=== PATIENT | male | born 1945 | race Caucasian/White ===

== ENCOUNTER 2018-01-03 12:58 | Emergency (ER) | payer MEDICARE ==
[2018-01-03] MEDS ORDERED: NORMAL SALINE 1000 ML 1,000 ML IV ONE (14:14)
[2018-01-03] MEDS ORDERED: MECLIZINE HCL 25 MG TABLET PO ONE (14:15)
[2018-01-03 14:55] LABS: ABSOLUTE BASOPHILS # (AUTO) 0.1 10^3/uL (0.0-0.2); ABSOLUTE EOSINOPHILS # (AUTO) 0.1 10^3/uL (0.0-0.6); ABSOLUTE LYMPHOCYTES (AUTO) 0.5 10^3/uL (0.5-4.7); ABSOLUTE MONOCYTES (AUTO) 0.4 10^3/uL (0.1-1.4); ABSOLUTE NEUT (AUTO) 8.5 10^3/uL (1.7-8.2); BASOPHILS % (AUTO) 0.6 % (0-2); EOSINOPHILS % (AUTO) 0.8 % (0-6); HEMATOCRIT 39.7 % (37.9-51.0); HEMOGLOBIN 13.7 g/dL (13.5-17.0); LYMPHOCYTES % (AUTO) 5.2 % (13-45); MEAN CORPUSCULAR HEMOGLOBIN 31.6 pg (27.0-33.4); MEAN CORPUSCULAR HGB CONC 34.3 g/dL (32.0-36.0); MEAN CORPUSCULAR VOLUME 92 fl (80-97); MONOCYTES % (AUTO) 4.5 % (3-13); PLATELET COUNT 224 10^3/uL (150-450); RED BLOOD COUNT 4.32 10^6/uL (4.35-5.55); RED CELL DISTRIBUTION WIDTH 13.5 % (11.5-14.0); SEGMENTED NEUTROPHILS % (AUTO) 88.9 % (42-78); TOTAL CELLS COUNTED % (AUTO) 100 %; WHITE BLOOD COUNT 9.6 10^3/uL (4.0-10.5)
--- NOTE | 2018-01-03 15:10 | RADIOLOGY REPORT (SQ) ---
EXAM DESCRIPTION: CHEST 2 VIEWS COMPLETED DATE/TIME: 01/03/2018 2:51 pm REASON FOR STUDY: dizziness COMPARISON: None. EXAM PARAMETERS: NUMBER OF VIEWS: two views TECHNIQUE: Digital Frontal and Lateral radiographic views of the chest acquired. RADIATION DOSE: NA LIMITATIONS: none FINDINGS: LUNGS AND PLEURA: No opacities, masses or pneumothorax. No pleural effusion. MEDIASTINUM AND HILAR STRUCTURES: No masses or contour abnormalities. HEART AND VASCULAR STRUCTURES: Heart normal size. No evidence for failure. BONES: No acute findings. HARDWARE: None in the chest. OTHER: No other significant finding. IMPRESSION: NO ACUTE RADIOGRAPHIC FINDING IN THE CHEST. TECHNICAL DOCUMENTATION: JOB ID: [id number] [employer]- All Rights Reserved Reading location - IP/workstation name: [email or web address]
[2018-01-03 15:17] LABS: ANION GAP 13 (5-19); BLOOD UREA NITROGEN 32 mg/dL (7-20); CALCIUM 9.9 mg/dL (8.4-10.2); CARBON DIOXIDE 26 mmol/L (22-30); CHLORIDE 105 mmol/L (98-107); GLUCOSE 115 mg/dL (75-110); POTASSIUM 4.5 mmol/L (3.6-5.0); SODIUM 143.9 mmol/L (137-145)
[2018-01-03 16:14] VITALS: BP 138/51
--- NOTE | 2018-01-03 16:28 | ER Document Report ---
ED General - General Chief Complaint: Shortness Of Breath Stated Complaint: DIZZINESS Time Seen by Provider: 01/03/18 14:09 TRAVEL OUTSIDE OF THE [place] IN LAST 30 DAYS: No - HPI Patient complains to provider of: Weakness dizziness Notes: Patient coming in for evaluation of weakness and dizziness. Patient states he was out mowing grass earlier today when symptoms started therefore came into the house continue to have symptoms therefore had his called EMS. Patient states he was feeling a little weak earlier this morning to have some diarrhea one bout. Patient states now in triage sitting up feeling much better when she is cooled off. Patient denies any head pain chest pain dull pain during the weakness episode. Patient denies any recent travel denies any shortness of breath at this time - Related Data Allergies/Adverse Reactions: No Known Allergies Allergy (Verified 01/03/18 13:00) Past Medical History - Social History Smoking Status: Never Smoker Chew tobacco use (# tins/day): No Frequency of alcohol use: None Drug Abuse: None Family History: Reviewed & Not Pertinent Patient has suicidal ideation: No Patient has homicidal ideation: No - Past Medical History Cardiac Medical History: Reports: Hx Hypercholesterolemia, Hx Hypertension Endocrine Medical History: Reports: Hx Diabetes Mellitus Type 2 - prediabetic Renal/ Medical History: Reports: Hx Kidney Stones. Denies: Hx Peritoneal Dialysis Past Surgical History: Reports: Hx Cardiac CatheterizationComment Only: Hx Cardiac Surgery - stent placed Aug 25, 2011 - Immunizations Hx Diphtheria, Pertussis, Tetanus Vaccination: Yes Hx Pneumococcal Vaccination: 06/23/11 Review of Systems - Review of Systems Constitutional: Weakness - Dizziness EENT: No symptoms reported Cardiovascular: No symptoms reported Respiratory: No symptoms reported Gastrointestinal: No symptoms reported Genitourinary: No symptoms reported Male Genitourinary: No symptoms reported Musculoskeletal: No symptoms reported Skin: No symptoms reported Hematologic/Lymphatic: No symptoms reported Neurological/Psychological: No symptoms reported Physical Exam - Vital signs Vitals: Temp Pulse Resp BP Pulse Ox 98.1 F 83 20 127/49 H 99 01/03/18 13:24 01/03/18 13:24 01/03/18 13:24 01/03/18 13:24 01/03/18 13:24 Interpretation: Normal - General General appearance: Appears well, Alert - HEENT Head: Normocephalic, Atraumatic Eyes: Normal Pupils: PERRL - Respiratory Respiratory status: No respiratory distress Chest status: Nontender Breath sounds: Normal Chest palpation: Normal - Cardiovascular Rhythm: Regular Heart sounds: Normal auscultation Murmur: No - Abdominal Inspection: Normal Distension: No distension Bowel sounds: Normal Tenderness: Nontender Organomegaly: No organomegaly - Back Back: Normal, Nontender - Extremities General upper extremity: Normal inspection, Nontender, Normal color, Normal ROM , Normal temperature General lower extremity: Normal inspection, Nontender, Normal color, Normal ROM , Normal temperature, Normal weight bearing. No: Rosetta's sign - Neurological Neuro grossly intact: Yes Cognition: Normal Orientation: AAOx4 Janet Coma Scale Eye Opening: Spontaneous [place] Coma Scale Verbal: Oriented Janet Coma Scale Motor: Obeys Commands [place] Coma Scale Total: 15 Speech: Normal Motor strength normal: LUE, RUE, LLE, RLE Sensory: Normal - Psychological Associated symptoms: Normal affect, Normal mood - Skin Skin Temperature: Warm Skin Moisture: Dry Skin Color: Normal Course - Re-evaluation Re-evalutation: 01/03/18 20:54 Orthostatics otherwise negative. Patient was given IV fluids here in ER laboratory studies not show any acute pathology. Increase in the patient's creatinine however lower than last laboratory studies performed here. Patient was ambulated around the ER without any difficulty no reproduction of symptoms. More likely symptoms due to heat exposure. Patient will be discharged home follow-up primary care physician. - Vital Signs Vital signs: Temp Pulse Resp BP Pulse Ox 98.1 F 78 16 138/51 H 100 01/03/18 13:24 01/03/18 16:13 01/03/18 16:13 01/03/18 16:13 01/03/18 16:13 - Laboratory Result Diagrams: 01/03/18 14:14 01/03/18 14:14 Laboratory results interpreted by me: 01/03/18 01/03/18 14:14 14:14 RBC 4.32 L Seg Neutrophils % 88.9 H Lymphocytes % 5.2 L Absolute Neutrophils 8.5 H BUN 32 H Creatinine 1.58 H Est GFR ( Amer) 53 L Est GFR (Non-Af Amer) 44 L Glucose 115 H Discharge - Discharge Clinical Impression: Dehydration Heat exposure Qualifiers: Encounter type: initial encounter Qualified Code(s): T67.9XXA - Effect of heat and light, unspecified, initial encounter Condition: Good Disposition: HOME, SELF-CARE Instructions: Dehydration ([facility]), Near Syncopal Episode ([facility]) Additional Instructions: Your laboratory studies not show any signs of significant pathology here today. Do believe your symptoms today were due to heat exposure and dehydration. Please make sure that she drink plenty of fluids water and fluids containing electrolytes such as Gatorade to make sure to stay well-hydrated. Would recommend rest for the next 48 hours. Follow-up with your doctor in 1 week. Return to ER symptoms worsen Referrals: YING AMAYA MD [Primary Care Provider] - Follow up as needed
--- NOTE | 2018-01-03 19:39 | EKG REPORT ---
SEVERITY:- BORDERLINE ECG - SINUS RHYTHM BORDERLINE T ABNORMALITIES, INFERIOR LEADS : Confirmed by: Amadeo Kong MD 03-Jan-2018 19:39:21
== END 2018-01-03 16:31 | disposition home or self-care (01) ==
LOC: ER 12:58
DX: T67.9XXA Effect of heat and light, unspecified, initial encounter (principal); E86.0 Dehydration; R06.02 Shortness of breath; R42 Dizziness and giddiness; R19.7 Diarrhea, unspecified; X58.XXXA Exposure to other specified factors, initial encounter; I10 Essential (primary) hypertension; E11.9 Type 2 diabetes mellitus without complications
CPT/HCPCS: 93005; 99284; 96360; 36415; 85025; 80048; 84484; 71046; 93010; A9270; J7030

== ENCOUNTER 2020-07-10 22:56 | Emergency (ER) | payer MEDICARE ==
[2020-07-10 23:58] LABS: ABSOLUTE BASOPHILS # (AUTO) 0.1 10^3/uL (0.0-0.2); ABSOLUTE EOSINOPHILS # (AUTO) 0.3 10^3/uL (0.0-0.6); ABSOLUTE LYMPHOCYTES (AUTO) 2.8 10^3/uL (0.5-4.7); ABSOLUTE MONOCYTES (AUTO) 0.8 10^3/uL (0.1-1.4); ABSOLUTE NEUT (AUTO) 3.8 10^3/uL (1.7-8.2); BASOPHILS % (AUTO) 0.9 % (0-2); EOSINOPHILS % (AUTO) 3.9 % (0-6); HEMATOCRIT 36.2 % (37.9-51.0); HEMOGLOBIN 12.5 g/dL (13.5-17.0); LYMPHOCYTES % (AUTO) 35.8 % (13-45); MEAN CORPUSCULAR HEMOGLOBIN 31.7 pg (27.0-33.4); MEAN CORPUSCULAR HGB CONC 34.5 g/dL (32.0-36.0); MEAN CORPUSCULAR VOLUME 92 fl (80-97); MONOCYTES % (AUTO) 10.4 % (3-13); PLATELET COUNT 252 10^3/uL (150-450); RED BLOOD COUNT 3.94 10^6/uL (4.35-5.55); RED CELL DISTRIBUTION WIDTH 13.8 % (11.5-14.0); TOTAL CELLS COUNTED % (AUTO) 100 %; WHITE BLOOD COUNT 7.9 10^3/uL (4.0-10.5)
--- NOTE | 2020-07-11 00:27 | RADIOLOGY REPORT (SQ) ---
EXAM DESCRIPTION: XR CHEST 1 VIEW COMPLETED DATE/TME: 07/10/2020 23:38 CLINICAL HISTORY: 74 years Male, CP COMPARISON:Jan 03 2018 NUMBER OF VIEWS/TECHNIQUE: 1/AP FINDINGS: Adequate lung volume, clear parenchyma, normal cardiac silhouette, and intact bony thorax.Atherosclerotic vascular disease. IMPRESSION: No acute cardiopulmonary findings.
[2020-07-11 01:57] LABS: ALBUMIN 4.1 g/dL (3.5-5.0); ALKALINE PHOSPHATASE 38 U/L (38-126); ANION GAP 10 (5-19); ASPARTATE AMINO TRANSFERASE 27 U/L (17-59); BILIRUBIN,DIRECT 0.2 mg/dL (0.0-0.4); BILIRUBIN,TOTAL 0.4 mg/dL (0.2-1.3); BLOOD UREA NITROGEN 37 mg/dL (7-20); CALCIUM 9.7 mg/dL (8.4-10.2); CARBON DIOXIDE 27 mmol/L (22-30); CHLORIDE 107 mmol/L (98-107); CREATINE KINASE 142 U/L (55-170); GLUCOSE 128 mg/dL (75-110); POTASSIUM 4.1 mmol/L (3.6-5.0); TOTAL PROTEIN 6.9 g/dL (6.3-8.2)
[2020-07-11 02:09] LABS: CREATINE KINASE MB 2.18 ng/mL (<4.55)
[2020-07-11 02:11] LABS: TROPONIN I < 0.012 ng/mL
[2020-07-11 06:51] LABS: APPEARANCE,URINE CLEAR; BILIRUBIN,URINE NEGATIVE (NEGATIVE); COLOR,URINE YELLOW; GLUCOSE, URINE NEGATIVE (NEGATIVE); KETONES,URINE NEGATIVE (NEGATIVE); LEUKOCYTE ESTERASE,URINE NEGATIVE (NEGATIVE); NITRITE,URINE NEGATIVE (NEGATIVE); PROTEIN,URINE >=500 mg/dL (NEGATIVE); URINE SPECIFIC GRAVITY 1.017; UROBILINOGEN,URINE NEGATIVE mg/dL (<2.0)
--- NOTE | 2020-07-11 06:57 | ER Document Report ---
ED General - General Chief Complaint: Chest Pain Stated Complaint: CHEST PAIN/BURNING Time Seen by Provider: 07/11/20 06:23 Primary Care Provider: YING AMAYA MD [Primary Care Provider] - Follow up as needed TRAVEL OUTSIDE OF THE [place] IN LAST 30 DAYS: No - HPI Notes: Chief complaint: Chest pain History of present illness: 74-year-old male with past history of CAD and previous stent placement greater than 5 years ago awakened from sleep overnight having some burning retrosternal discomfort without radiation which she says was somewhat similar to the pain he had had back prior to his stent procedure. There was no radiation of pain. There was no diaphoresis, nausea, vomiting or dyspnea associated. Patient took 1 nitroglycerin at home with partial relief of the discomfort. EMS was called and a second dose of nitroglycerin was given. His discomfort completely resolved and he was transported here. He is remained asymptomatic since arrival here. Patient is a type II diabetic well-controlled and has a history of hypertension and hyperlipidemia. His family history is negative for CAD. He has not smoked in over 20 years. He denies any known history of thromboembolic disease and has no identifiable risk factors for thromboembolic disease. 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 - Related Data Allergies/Adverse Reactions: No Known Allergies Allergy (Verified 01/03/18 13:00) Past Medical History - General Information source: Patient, Relative - Social History Smoking Status: Former Smoker Frequency of alcohol use: Rare Family History: Reviewed & Not Pertinent - Past Medical History Cardiac Medical History: Reports: Hx Coronary Artery Disease, Hx Hypercholesterolemia, Hx Hypertension Denies: Hx DVT, Hx Pulmonary Embolism Endocrine Medical History: Reports: Hx Diabetes Mellitus Type 2 - prediabetic Renal/ Medical History: Reports: Hx Kidney Stones. Denies: Hx Peritoneal Dialysis Past Surgical History: Reports: Hx Cardiac CatheterizationComment Only: Hx Cardiac Surgery - stent placed Aug 25, 2011 - Immunizations Hx Diphtheria, Pertussis, Tetanus Vaccination: Yes Hx Pneumococcal Vaccination: 06/23/11 Review of Systems - Review of Systems Notes: Constitutional: Negative for fever. HENT: Negative for sore throat. Eyes: Negative for visual changes. Cardiovascular: As per HPI. Respiratory: Negative for shortness of breath. Gastrointestinal: Negative for abdominal pain, vomiting or diarrhea. Genitourinary: Negative for dysuria. Musculoskeletal: Negative for back pain. Skin: Negative for rash. Neurological: Negative for headaches, weakness or numbness. 10 point ROS negative except as marked above and in HPI. Physical Exam - Vital signs Vitals: Temp 98.0 F 07/10/20 22:56 - Notes Notes: GENERAL: Male patient approximately stated age appearing in no acute distress. SKIN: Good turgor no rashes. HEAD: Normocephalic atraumatic. EYES: PERRLA. EOMI. Conjunctivae and sclerae clear. EARS: CANALS AND TMS CLEAR. NOSE: CLEAR. MOUTH: Moist mucosa. Good dentition. No stridor or edema. No drooling. NECK: Supple. No masses or thyromegaly. No adenopathy. Carotids 2+ without bruits. No JVD. BACK: Symmetrical without tenderness. CHEST: Respirations unlabored. Breath sounds clear and symmetrical. HEART: Regular rhythm. No murmur gallop or rub. ABDOMEN: Soft nontender without masses, organomegaly or rebound. Bowel sounds normally active. No bruits. GENITALIA: Deferred. EXTREMITIES: Mild degenerative changes of interphalangeal joints of both hands no edema. No calf tenderness. Cap refill less than 1.5 seconds. Dorsalis pedis and posterior tibial pulses 3+ and symmetrical. NEUROLOGICAL: GCS 15. Alert and oriented x3. Normal gait. Fluent speech. Cranial nerves II through XII intact. Sensorimotor and cerebellar normal. Normal tone. PSYCHIATRIC: Appropriate affect. Course - Re-evaluation Re-evalutation: 07/11/20 07:00 Findings have been reviewed with on-call photovoltaic subcontractor Dr. Russ and it is agreed that the patient is stable for outpatient follow-up with exercise testing which he will arrange within the next 3 to 4 days. Continue current medications. I am going to add some Protonix for possible reflux. Red flag symptoms for early return to the emergency department reviewed with patient and his daughter. Findings, clinical impression and plan of treatment have been discussed with patient/family. Understanding of current findings and recommendations has been acknowledged by them and there is agreement regarding disposition and follow-up. - Vital Signs Vital signs: Temp Pulse Resp BP Pulse Ox 98.0 F 16 152/59 H 97 07/10/20 22:56 07/11/20 06:01 07/11/20 06:01 07/11/20 06:01 - Laboratory Results Result Diagrams: 07/10/20 23:46 07/11/20 01:24 Laboratory Results Interpreted: 07/10/20 07/11/20 23:46 01:24 RBC 3.94 L Hgb 12.5 L Hct 36.2 L BUN 37 H Creatinine 1.77 H Est GFR ( Amer) 46 L Est GFR (MDRD) Non-Af 38 L Glucose 128 H Critical Laboratory Results Reviewed: No Critical Results - Radiology Results Radiology Results Interpreted: 07/11/20 06:59 Chest X-Ray 07/10/20 23:27 IMPRESSION: No acute cardiopulmonary findings. Critical Radiology Results Reviewed: No Critical Results - EKG Interpretation by Me Additional EKG results interpreted by me: 07/11/20 06:59 Twelve-lead EKG reviewed by me contemporaneously: 2301 hrs. 07/10/2020 Indication for study: Chest pain Rhythm: Normal sinus Rate: 72 Intervals: Normal intervals QRS axis: +[address]/T wave changes: None Comparison with prior tracing: None Interpretation: Normal tracing Discharge - Discharge Clinical Impression: Gastroesophageal reflux Chest pain Qualifiers: Chest pain type: unspecified Qualified Code(s): R07.9 - Chest pain, unspecified Condition: Stable Disposition: HOME, SELF-CARE Instructions: Antacid Therapy ([facility]), Chest Pain of Unclear Cause ([facility]) Additional Instructions: Return here as needed for new or worsening symptoms: Pain that is worsening or unimproved Shortness of breath Uncontrolled vomiting High fever or shaking chills Overall worsening [facility] will contact you to arrange outpatient follow-up this week. Prescriptions: Pantoprazole Sodium [Protonix [address] Tablet] 20 mg PO DAILY 30 Days #30 tablet. Referrals: YING AMAYA MD [Primary Care Provider] - Follow up as needed TESSA RUSS MD [ACTIVE STAFF] - Follow up as needed
[2020-07-11 07:08] VITALS: BP 169/71
--- NOTE | 2020-07-11 17:23 | EKG REPORT ---
SEVERITY:- NORMAL ECG - SINUS RHYTHM : Confirmed by: Monica Ruelas MD 11-Jul-2020 17:22:38
== END 2020-07-11 07:35 | disposition home or self-care (01) ==
LOC: ER 22:56
DX: K21.9 Gastro-esophageal reflux disease without esophagitis (principal); R07.9 Chest pain, unspecified; E11.9 Type 2 diabetes mellitus without complications; E78.00 Pure hypercholesterolemia, unspecified; I10 Essential (primary) hypertension; Z87.442 Personal history of urinary calculi
CPT/HCPCS: 36415; 71045; 80053; 81001; 82550; 82553; 84484; 85025; 93005; 93010; 99285